=== PATIENT | female | born 1995 | race African-American/Black ===

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

== ENCOUNTER 2017-03-14 20:03 | Emergency (ER) | payer OTHER | END 2017-03-14 21:15 | disposition home or self-care (01) | LOC: SED 20:03 | DX: R51 Headache (principal) | CPT/HCPCS: 99282; J0780; J1200; J1885 ==